=== PATIENT | female | born 1945 | race Caucasian/White ===

== ENCOUNTER 2017-01-10 19:00 | Emergency (ER) | payer OTHER, MEDICARE ==
[~2017-01-10] VITALS: Ht 167.6 cm; Wt 70.0 kg
[2017-01-10 19:15] VITALS: BP 189/86; PULSE 75; RESP 16; TEMP 97.5; O2SAT 98
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
--- NOTE | 2017-01-10 20:51 | RADRPT ---
EXAM DATE/TIME: 01/10/2017 19:40 [facility] COMPARISON: No previous studies available for comparison. INDICATIONS : Left shoulder pain MEDICAL HISTORY : None. SURGICAL HISTORY : Left patella hardware placement ENCOUNTER: Initial ACUITY: 1 day PAIN SCORE: 7/10 LOCATION: Left Shoulder FINDINGS: 4 views of the left shoulder demonstrate no fracture or dislocation. The acromioclavicular joint is i ntact with osteoarthritis. No soft tissue abnormality is identified. The visualized portions of the left lung are clear and no displaced rib fracture is seen. CONCLUSION: No acute left shoulder abnormality is identified. There is osteoarthritis at the acromioclavicular tor int. Rolf Rocha MD on January 10, 2017 at 20:47 Board Certified Radiologist. This report was verified electronically.
[2017-01-10] MEDS ORDERED: TETANUS/DIPHTHERIA TOXOID ADULT 0.5 ML VIAL IM ONE (21:15)
[2017-01-10] MEDS ORDERED: LIDOCAINE HCL 1% 50 ML VIAL INFIL ONE (21:15)
[2017-01-10] MEDS ORDERED: IBUPROFEN 400 MG TAB PO ONE (21:15)
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
[2017-01-10] MEDS ORDERED: CEPHALEXIN MONOHYDRATE 500 MG CAP PO ONE (21:30)
[2017-01-10] MEDS ORDERED: CEPH-460 PO (22:03)
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
[2017-01-10 22:44] VITALS: PULSE 78; RESP 18; O2SAT 98
== END 2017-01-10 22:52 | disposition home or self-care (01) ==
LOC: NEPD 19:00
DX: S81.012A Laceration without foreign body, left knee, initial encounter (principal); S40.012A Contusion of left shoulder, initial encounter; S90.811A Abrasion, right foot, initial encounter; V09.20XA Pedestrian injured in traffic accident involving unspecified motor vehicles, initial encounter; Y92.481 Parking lot as the place of occurrence of the external cause; Z23 Encounter for immunization
CPT/HCPCS: 12004; 73030; 73564; 73630; 90471; 90714